=== PATIENT | male | born 1990 | race Caucasian/White ===

== ENCOUNTER 2017-05-06 04:53 | Inpatient (IN) | payer BC ==
[2017-05-06] MEDS ORDERED: Sodium Chloride 0.9% 1,000 ML IV STA (05:01)
[2017-05-06] MEDS ORDERED: Morphine 4 mg/ml ISec IVP STA ×2 (05:01→05:24)
[2017-05-06] MEDS ORDERED: Morphine 2 mg/ml ISec ONE (05:09)
--- NOTE | 2017-05-06 05:11 | ED PDOC ---
Arrival/HPI - General Chief Complaint: Abdominal Pain Time Seen by Provider: 05/06/17 05:00 Historian: Patient - History of Present Illness Narrative History of Present Illness (Text): 05/06/17 05:00 Tala Reilly is a 27 year old male, whose past medical history includes diabetes , who presents to the emergency department complaining of waking up a few hours ago with diffuse sharp, burning abdominal pain that radiates down into his suprapubic region. Reports some back pain. Patient states that he experiences multiple episodes of associated vomiting and notes that he has never experienced this kind of pain before. Patient says that he took Pepcid for pain which may have only worsened it. Patient denies any fevers, urinary symptoms, or any other complaints at this time. Patient endorses that he is a social drinker. 05/06/17 05:53 Time/Duration: 1-3 hours Symptom Onset: Gradual Symptom Course: Unchanged Quality: Burning, Other (Sharp) Severity Level: Moderate Activities at Onset: Rest Context: Home Past Medical History - Provider Review Nursing Documentation Reviewed: Yes - Cardiac Hx Cardiac Disorders: No - Pulmonary Hx Respiratory Disorders: No - Neurological Hx Neurological Disorder: No - HEENT Hx HEENT Disorder: No - Renal Hx Renal Disorder: No - Endocrine/Metabolic Hx Endocrine Disorders: Yes Hx Diabetes Mellitus Type 1: Yes - Hematological/Oncological Hx Blood Disorders: No - Integumentary Hx Dermatological Disorder: No - Musculoskeletal/Rheumatological Hx Musculoskeletal Disorders: No - Gastrointestinal Hx Gastrointestinal Disorders: No - Genitourinary/Gynecological Hx Genitourinary Disorders: No - Psychiatric Hx Anxiety: No Hx Depression: No Hx Emotional Abuse: No Hx Physical Abuse: No Hx Substance Use: No - Past Surgical History Past Surgical History: No Previous - Suicidal Assessment Feels Threatened In Home Enviroment: No Family/Social History - Physician Review Nursing Documentation Reviewed: Yes Family/Social History: No Known Family HX Smoking Status: Never Smoked Hx Alcohol Use: Yes Frequency of alcohol use: Socially Hx Substance Use: No Allergies/Home Meds Allergies/Adverse Reactions: Allergies No Known Allergies Allergy (Verified 05/06/17 05:00) Home Medications: Home Meds Medication Instructions Recorded Confirmed Insulin Aspart [Novolog] 55 unit SQ DAILY 02/04/16 05/06/17 Insulin Glargine, Recombina 20 unit SC AC 02/04/16 05/06/17 [Lantus] Ranitidine HCl [Acid Casting Assistant] 50 mg PO DAILY 05/06/17 05/06/17 Review of Systems - Physician Review All systems were reviewed & negative as marked: Yes - Review of Systems Constitutional: absent: Fevers, Night Sweats Eyes: absent: Vision Changes ENT: absent: Hearing Changes Respiratory: absent: SOB, Cough Cardiovascular: absent: Chest Pain Gastrointestinal: Abdominal Pain, Constipation, Vomiting. absent: Diarrhea Genitourinary Male: absent: Dysuria, Frequency, Urinary Output Changes Musculoskeletal: Back Pain. absent: Arthralgias Skin: absent: Rash, Pruritis Neurological: absent: Headache, Dizziness Endocrine: absent: Diaphoresis Hemo/Lymphatic: absent: Adenopathy Psychiatric: absent: Depression Physical Exam Vital Signs Reviewed: Yes Vital Signs Temp Pulse Resp BP Pulse Ox 05/06/17 05:00 97.8 F 105 H 20 151/96 H 99 Temperature: Afebrile Blood Pressure: Hypertensive Pulse: Tachycardic Respiratory Rate: Normal Appearance: Positive for: Uncomfortable Pain Distress: Severe Mental Status: Positive for: Alert and Oriented X 3 - Systems Exam Head: Present: Atraumatic, Normocephalic Pupils: Present: PERRL Extroacular Muscles: Present: EOMI Conjunctiva: Present: Normal Mouth: Present: Moist Mucous Membranes Neck: Present: Normal Range of Motion Respiratory/Chest: Present: Clear to Auscultation, Good Air Exchange. No: Respiratory Distress, Accessory Muscle Use Cardiovascular: Present: Regular Rate and Rhythm, Normal S1, S2. No: Murmurs Abdomen: Present: Tenderness (Diffuse abdominal tenderness), Other (urostomy back to R abdominal, draining clear urine.) Back: Present: Normal Inspection Upper Extremity: Present: Normal Inspection. No: Cyanosis, Edema Lower Extremity: Present: Normal Inspection. No: Edema Neurological: Present: GCS=15, CN II-XII Intact, Speech Normal Skin: Present: Warm, Dry, Normal Color. No: Rashes Psychiatric: Present: Alert, Oriented x 3, Normal Insight, Normal Concentration Medical Decision Making ED Course and Treatment: 05/06/17 05:00 Impression: 27 year old male complaining of waking up a few hours ago with diffuse sharp, burning abdominal pain. Differential Diagnosis included but are not limited to: Plan: -- Chest X-ray -- Urinalysis -- Morphine and IV Fluids -- Labs -- Reassess and disposition Prior Visits: Notes and results from previous visits were reviewed. Patient last seen in the ED on 02/04/16 for intermittent sore throat for a few months. Patient was discharged home. Progress Notes: 05/06/17 06:01 Labs grossly normal. EKG shows NSR at 96bpm. Cxray negative for free air. UA positive for hematuria. Will get CT abd/pelvis without contrast to evaluate for kidney stones. 05/06/17 07:00 Will sign out to Dr. Alegre to follow-up CT and reevaluate. 05/06/17 07:01 - Lab Interpretations Lab Results: 05/06/17 05:05 05/06/17 05:05 Lab Results 05/06/17 06:35: Urine Color Yellow, Urine Appearance Clear, Urine pH 6.0, Ur Specific [place] >= 1.030, Urine Protein >=300 H, Urine Glucose (UA) >=1000, Urine Ketones Trace H, Urine Blood Small H, Urine Nitrate Negative, Urine Bilirubin Negative, Urine Urobilinogen 0.2, Ur Leukocyte Esterase Negative, Urine RBC Pending, Urine WBC Pending 05/06/17 05:05: POC Glucose (mg/dL) 189 H 05/06/17 05:05: Sodium 139, Potassium 3.5 L, Chloride 100, Carbon Dioxide 25, Anion Gap 18, BUN 20, Creatinine 0.9, Est GFR ( Amer) > 60, Est GFR (Non- Af Amer) > 60, Random Glucose 230 H, Calcium 9.7, Phosphorus 3.9, Magnesium 1.7 , Total Bilirubin 0.5, AST 51, ALT 38, Alkaline Phosphatase 51, Total Protein 7.6, Albumin 4.6, Globulin 2.9, Albumin/Globulin Ratio 1.6, Lipase 53 05/06/17 05:05: WBC 11.1 H, RBC 5.03, Hgb 14.7, Hct 42.3, MCV 84.1, MCH 29.2, MCHC 34.8, RDW 12.3, Plt Count 279, MPV 9.5, Gran % 53.6, Lymph % (Auto) 37.2 H , [place] % (Auto) 7.7 H, Eos % (Auto) 1.3 L, Baso % (Auto) 0.2, Gran # 5.96, Lymph # 4.1 H, [place] # 0.9 H, Eos # 0.1, Baso # 0.02 - RAD Interpretation Radiology Orders: 05/06/17 05:04 CHEST PORTABLE [RAD] Stat 05/06/17 06:46 ABD & PELVIS W/O PO OR IV CONT [CT] Stat - Medication Orders Current Medication Orders: Discontinued Medications Sodium Chloride (Sodium Chloride 0.9%) 1,000 mls @ 999 mls/hr IV .Q1H1M STA Stop: 05/06/17 06:01 Last Admin: 05/06/17 05:13 Dose: 999 mls/hr eMAR Start Stop Document 05/06/17 05:13 JOL (Rec: 05/06/17 05:13 JOL [id number]) Intravenous Solution Start Date 05/06/17 Start Time 05:13 End Date 05/06/17 End time 06:14 Total Infusion Time 61 Ketorolac Tromethamine (Toradol) 30 mg IVP STAT STA Stop: 05/06/17 05:25 Last Admin: 05/06/17 05:25 Dose: 30 mg MAR Pain Assessment Document 05/06/17 05:25 JOL (Rec: 05/06/17 06:48 JOL [id number]) Pain Reassessment Is this a pain reassessment? No Sleep Is patient sleeping during reassessment? No Presence of Pain Presence of Pain Yes Pain Scale Used Pain Scale Used Numeric Location Pain Location Body Site Abdomen Back Description Description Constant Intensity of Pain at present 9 IVP Administration Document 05/06/17 05:25 JOL (Rec: 05/06/17 06:48 JOL [id number]) Charges for Administration # of IVP Administrations 1 Morphine Sulfate (Morphine) 4 mg IVP STAT STA Stop: 05/06/17 05:02 Last Admin: 05/06/17 05:13 Dose: Morphine Sulfate (Morphine) 4 mg IVP STAT STA Stop: 05/06/17 05:25 Last Admin: 05/06/17 05:25 Dose: 4 mg MAR Pain Assessment Document 05/06/17 05:25 JOL (Rec: 05/06/17 06:48 JOL [id number]) Pain Reassessment Is this a pain reassessment? Yes Sleep Is patient sleeping during reassessment? No Presence of Pain Presence of Pain Yes Pain Scale Used Pain Scale Used Numeric Location Pain Location Body Site Abdomen Back Description Description Constant Intensity of Pain at present 9 Pain Behavior Moaning Crying Restlessness Facial Grimacing Screaming Aggravating Factors None IVP Administration Document 05/06/17 05:25 JOL (Rec: 05/06/17 06:48 JOL [id number]) Charges for Administration # of IVP Administrations 1 Morphine Sulfate (Morphine) 4 mg IVP STAT STA Stop: 05/06/17 05:50 Last Admin: 05/06/17 05:50 Dose: 4 mg MAR Pain Assessment Document 05/06/17 05:50 JOL (Rec: 05/06/17 06:49 JOL [id number]) Pain Reassessment Is this a pain reassessment? Yes Sleep Is patient sleeping during reassessment? No Presence of Pain Presence of Pain Yes Pain Scale Used Pain Scale Used Numeric Location Pain Location Body Site Abdomen Back Description Intensity of Pain at present 9 Pain Behavior Restlessness Facial Grimacing Screaming IVP Administration Document 05/06/17 05:50 JOL (Rec: 05/06/17 06:49 JOL [id number]) Charges for Administration # of IVP Administrations 1 - Scribe Statement The provider has reviewed the documentation as recorded by the Cherelle Evans Provider Scribe Attestation: All medical record entries made by the Scribe were at my direction and personally dictated by me. I have reviewed the chart and agree that the record accurately reflects my personal performance of the history, physical exam, medical decision making, and the department course for this patient. I have also personally directed, reviewed, and agree with the discharge instructions and disposition. Disposition/Present on Arrival - Present on Arrival Any Indicators Present on Arrival: No History of DVT/PE: No History of Uncontrolled Diabetes: No Urinary Catheter: No History of Decub. Ulcer: No History Surgical Site Infection Following: None - Disposition Have Diagnosis and Disposition been Completed?: Yes Diagnosis: Abdominal pain Disposition Time: 06:58 Patient Problems: Current Active Problems Problem Status Onset Abdominal pain Acute Condition: FAIR Referrals: Alta Valencia DO [Primary Care Provider] - Follow up with primary Forms: Whatever (Portuguese)
[2017-05-06 05:32] LABS: BASO # 0.02 K/mm3 (0.0-2.0); BASO % 0.2 % (0.0-3.0); EOS # 0.1 (0.0-0.7); EOS % 1.3 % (1.5-5.0); GRAN # 5.96 (1.4-6.5); GRAN % 53.6 % (50.0-68.0); HEMATOCRIT 42.3 % (42.0-52.0); LYMPH # 4.1 (1.2-3.4); LYMPH % 37.2 % (22.0-35.0); MEAN CELL VOLUME 84.1 fl (80.0-105.0); MEAN CORPUSCULAR HEMOGLOBIN 29.2 pg (25.0-35.0); MEAN CORPUSCULAR HGB CONC 34.8 g/dl (31.0-37.0); MEAN PLATELET VOLUME 9.5 fl (7.0-11.0); MONO # 0.9 (0.1-0.6); MONO % 7.7 % (1.0-6.0); RED CELL DISTRIBUTION WIDTH 12.3 % (11.5-14.5); WHITE BLOOD COUNT 11.1 10^3/ul (4.5-11.0)
[2017-05-06 05:38] LABS: ALB/GLOB RATIO 1.6 (1.1-1.8); ALKALINE PHOSPHATASE 51 U/L (38-126); ALT/SGPT 38 U/L (7-56); AST/SGOT 51 U/L (17-59); BILIRUBIN,TOTAL 0.5 mg/dL (0.2-1.3); BLOOD UREA NITROGEN 20 mg/dL (7-21); CALCIUM 9.7 mg/dL (8.4-10.5); CARBON DIOXIDE 25 mmol/L (21-33); CHLORIDE 100 mmol/L (95-110); GFR AFRICAN-AMERICAN > 60; GLUCOSE,RANDOM 230 mg/dL (70-110); LIPASE 53 U/L (23-300); MAGNESIUM 1.7 mg/dL (1.7-2.2); PHOSPHOROUS 3.9 mg/dL (2.5-4.5); POTASSIUM 3.5 mmol/L (3.6-5.0); SODIUM 139 mmol/L (132-148); TOTAL PROTEIN 7.6 g/dL (5.8-8.3)
[2017-05-06] MEDS ORDERED: Morphine 2 mg/ml ISec IVP STA (05:49)
[2017-05-06 06:39] LABS: URINE APPEARANCE CLEAR (CLEAR); URINE BILIRUBIN NEGATIVE (NEGATIVE); URINE BLOOD SMALL (NEGATIVE); URINE COLOR YELLOW (YELLOW); URINE GLUCOSE (UA) >=1000 mg/dL (NEGATIVE); URINE KETONE TRACE mg/dL (NEGATIVE); URINE LEUKOCYTE ESTERASE NEGATIVE Leu/uL (NEGATIVE); URINE PROTEIN >=300 mg/dL (<30 mg/dL); URINE UROBILINOGEN 0.2 E.U./dL (<1 E.U./dL)
[2017-05-06 07:04] LABS: URINE BACTERIA FEW (NEG); URINE EPITHELIAL CELLS 0 - 2 /hpf (0-5); URINE RBC 0 - 2 /hpf (0-2); URINE WBC 0 - 2 /hpf (0-6)
--- NOTE | 2017-05-06 07:12 | ED PDOC ---
Physical Exam Vital Signs Reviewed: Yes Vital Signs Temp Pulse Resp BP Pulse Ox 05/06/17 05:00 97.8 F 105 H 20 151/96 H 99 Temperature: Afebrile Blood Pressure: Hypertensive Pulse: Tachycardic Respiratory Rate: Normal Appearance: Positive for: Well-Appearing, Non-Toxic, Comfortable Pain Distress: None Mental Status: Positive for: Alert and Oriented X 3 Medical Decision Making ED Course and Treatment: 05/06/17 07:10: Case endorsed to me by Dr. Miller. Reevaluate and Disposition. 05/06/17 08:34: Discussed case with Dr. Sandoval, penetration tester for Dr. Valencia. Requests Dr. Sousa on consult Dr. Sousa was paged. 05/06/17 08:38: Discussed case with Dr. Sousa. Will see patient and surgery residents will be called. - Lab Interpretations Lab Results: 05/06/17 05:05 05/06/17 05:05 Lab Results 05/06/17 06:35: Urine Color Yellow, Urine Appearance Clear, Urine pH 6.0, Ur Specific [place] >= 1.030, Urine Protein >=300 H, Urine Glucose (UA) >=1000, Urine Ketones Trace H, Urine Blood Small H, Urine Nitrate Negative, Urine Bilirubin Negative, Urine Urobilinogen 0.2, Ur Leukocyte Esterase Negative, Urine RBC 0 - 2, Urine WBC 0 - 2, Ur Epithelial Cells 0 - 2, Urine Bacteria Few 05/06/17 05:05: POC Glucose (mg/dL) 189 H 05/06/17 05:05: Sodium 139, Potassium 3.5 L, Chloride 100, Carbon Dioxide 25, Anion Gap 18, BUN 20, Creatinine 0.9, Est GFR ( Amer) > 60, Est GFR (Non- Af Amer) > 60, Random Glucose 230 H, Calcium 9.7, Phosphorus 3.9, Magnesium 1.7 , Total Bilirubin 0.5, AST 51, ALT 38, Alkaline Phosphatase 51, Total Protein 7.6, Albumin 4.6, Globulin 2.9, Albumin/Globulin Ratio 1.6, Lipase 53 05/06/17 05:05: WBC 11.1 H, RBC 5.03, Hgb 14.7, Hct 42.3, MCV 84.1, MCH 29.2, MCHC 34.8, RDW 12.3, Plt Count 279, MPV 9.5, Gran % 53.6, Lymph % (Auto) 37.2 H , [place] % (Auto) 7.7 H, Eos % (Auto) 1.3 L, Baso % (Auto) 0.2, Gran # 5.96, Lymph # 4.1 H, [place] # 0.9 H, Eos # 0.1, Baso # 0.02 - RAD Interpretation Radiology Orders: 05/06/17 05:04 CHEST PORTABLE [RAD] Stat 05/06/17 06:46 ABD & PELVIS W/O PO OR IV CONT [CT] Stat - Medication Orders Current Medication Orders: Discontinued Medications Sodium Chloride (Sodium Chloride 0.9%) 1,000 mls @ 999 mls/hr IV .Q1H1M STA Stop: 05/06/17 06:01 Last Admin: 05/06/17 05:13 Dose: 999 mls/hr eMAR Start Stop Document 05/06/17 05:13 JOL (Rec: 05/06/17 05:13 JOL [id number]) Intravenous Solution Start Date 05/06/17 Start Time 05:13 End Date 05/06/17 End time 06:14 Total Infusion Time 61 Ketorolac Tromethamine (Toradol) 30 mg IVP STAT STA Stop: 05/06/17 05:25 Last Admin: 05/06/17 05:25 Dose: 30 mg MAR Pain Assessment Document 05/06/17 05:25 JOL (Rec: 05/06/17 06:48 JOL [id number]) Pain Reassessment Is this a pain reassessment? No Sleep Is patient sleeping during reassessment? No Presence of Pain Presence of Pain Yes Pain Scale Used Pain Scale Used Numeric Location Pain Location Body Site Abdomen Back Description Description Constant Intensity of Pain at present 9 IVP Administration Document 05/06/17 05:25 JOL (Rec: 05/06/17 06:48 JOL [id number]) Charges for Administration # of IVP Administrations 1 Morphine Sulfate (Morphine) 4 mg IVP STAT STA Stop: 05/06/17 05:02 Last Admin: 05/06/17 05:13 Dose: Morphine Sulfate (Morphine) 4 mg IVP STAT STA Stop: 05/06/17 05:25 Last Admin: 05/06/17 05:25 Dose: 4 mg MAR Pain Assessment Document 05/06/17 05:25 JOL (Rec: 05/06/17 06:48 JOL [id number]) Pain Reassessment Is this a pain reassessment? Yes Sleep Is patient sleeping during reassessment? No Presence of Pain Presence of Pain Yes Pain Scale Used Pain Scale Used Numeric Location Pain Location Body Site Abdomen Back Description Description Constant Intensity of Pain at present 9 Pain Behavior Moaning Crying Restlessness Facial Grimacing Screaming Aggravating Factors None IVP Administration Document 05/06/17 05:25 JOL (Rec: 05/06/17 06:48 JOL [id number]) Charges for Administration # of IVP Administrations 1 Morphine Sulfate (Morphine) 4 mg IVP STAT STA Stop: 05/06/17 05:50 Last Admin: 05/06/17 05:50 Dose: 4 mg MAR Pain Assessment Document 05/06/17 05:50 JOL (Rec: 05/06/17 06:49 JOL [id number]) Pain Reassessment Is this a pain reassessment? Yes Sleep Is patient sleeping during reassessment? No Presence of Pain Presence of Pain Yes Pain Scale Used Pain Scale Used Numeric Location Pain Location Body Site Abdomen Back Description Intensity of Pain at present 9 Pain Behavior Restlessness Facial Grimacing Screaming IVP Administration Document 05/06/17 05:50 JOL (Rec: 05/06/17 06:49 JOL [id number]) Charges for Administration # of IVP Administrations 1 - Scribe Statement The provider has reviewed the documentation as recorded by the Cherelle Raimrez Provider Scribe Attestation: All medical record entries made by the Scribe were at my direction and personally dictated by me. I have reviewed the chart and agree that the record accurately reflects my personal performance of the history, physical exam, medical decision making, and the department course for this patient. I have also personally directed, reviewed, and agree with the discharge instructions and disposition. Disposition/Present on Arrival - Present on Arrival Any Indicators Present on Arrival: No History of DVT/PE: No History of Uncontrolled Diabetes: No Urinary Catheter: No History of Decub. Ulcer: No History Surgical Site Infection Following: None - Disposition Have Diagnosis and Disposition been Completed?: Yes Diagnosis: Abdominal pain, SBO (small bowel obstruction) Disposition: HOSPITALIZED Disposition Time: 11:00 Patient Problems: Current Active Problems Problem Status Onset Abdominal pain Acute Condition: STABLE
--- NOTE | 2017-05-06 08:30 | CT ---
PROCEDURE: CT Abdomen and Pelvis without intravenous contrast HISTORY: hematuria, abdominal pain COMPARISON: None. TECHNIQUE: Without contrast.. Contrast Dose: 0 Radiation dose: Total exam DLP = 1791.04 mGy-cm. This CT exam was performed using one or more of the following dose reduction techniques: Automated exposure control, adjustment of the mA and/or kV according to patient size, and/or use of iterative reconstruction technique. FINDINGS: LOWER THORAX: Unremarkable. LIVER: Mild hepatomegaly. Smooth contour. Diffusely diminished attenuation with some heterogeneity consistent with heterogeneous fatty infiltration. No mass. No biliary dilatation. GALLBLADDER AND BILE DUCTS: Unremarkable. PANCREAS: Unremarkable. No gross lesion or ductal dilatation. SPLEEN: Unremarkable. ADRENALS: Unremarkable. No mass. KIDNEYS AND URETERS: Unremarkable. No hydronephrosis. No solid mass. VASCULATURE: Unremarkable. No aortic aneurysm. BOWEL: There is a loop of small bowel in the left upper quadrant of the abdomen showing dilatation up to 5 cm diameter with mural thickening and some mesenteric edema. Uncertain significance. Cannot rule out early obstruction. . Follow-up advised. No other abnormal bowel loops are identified. APPENDIX: Unremarkable. Normal appendix. PERITONEUM: Unremarkable. No free fluid. No free air. LYMPH NODES: Unremarkable. No enlarged lymph nodes. BLADDER: Nondistended REPRODUCTIVE: Normal prostate BONES: No acute fracture. OTHER FINDINGS: None. IMPRESSION: Loop of proximal small bowel with dilatation in mural thickening and mesenteric edema. Rule out mechanical obstruction. Followup advised. No evidence of urinary calculus or urinary tract obstruction. Mild hepatomegaly with fatty infiltration.
--- NOTE | 2017-05-06 08:44 | RAD ---
HISTORY: upright chest, abdominal pain COMPARISON: No prior. FINDINGS: LUNGS: No active pulmonary disease. PLEURA: No significant pleural effusion identified, no pneumothorax apparent. CARDIOVASCULAR: Normal. OSSEOUS STRUCTURES: No significant abnormalities. VISUALIZED UPPER ABDOMEN: Normal. OTHER FINDINGS: None. IMPRESSION: No active disease.
[2017-05-06] MEDS ORDERED: HYDROmorphone 1 mg/ml ISec IVP PRN (08:50)
[2017-05-06] MEDS ORDERED: Sodium Chloride 0.9% 1,000 ML IV SCH (09:00)
[2017-05-06] MEDS ORDERED: Morphine 4 mg/ml ISec IVP PRN (09:11)
--- NOTE | 2017-05-06 09:24 | CP.PCM.CON ---
<James Velasquez - Last Filed: 05/06/17 16:01> History of Present Illness - History of Present Illness History of Present Illness: General Surgery Consult Note for Dr. Villalta Reason for Consult: Abdominal pain and vomiting 27 year old Male that presented to the ED this morning with diffuse abdominal pain that started at 2:00am. He reports eating a large meal and a cocktail for dinner. He stated he has never had pain like this before and it was only getting worse after he took ranitidine and peptobismol. He reports associated diaphoresis, nausea and non-bilious, non-bloody vomiting x 3. His last bowel movement was in the morning which he describes as solid and brown in color. Denies any flatus. 2 weeks prior he stated he had multiple episodes of diarrhea and was subsequently diagnosed with gastroenteritis and prescribed ranitidine for abdominal pain. He also reports 3 weeks ago he started taking over the counter weight loss pills from [facility]. Denies any headache, fever, chills, night sweats, nausea, vomiting, diarrhea, chest pain or shortness of breath. PMH: Type 1 Diabetes Mellitus, Asthma Meds: Novolog, Lantus, Randitidine Allergies: NKDA PSH: Right inguinal hernia repair as a child in [place] FH: No history of colon cancer or GI tract cancers. Significant for cardiac disease and Diabetes Mellitus Social: Works at [employer]. Denies any tobacco or illicit drug use. Drinks ETOH socially. Review of Systems - Constitutional Constitutional: absent: Chills, Weight Loss - EENT Eyes: absent: Change in Vision, Loss of Peripheral Vision Ears: absent: Dizziness Nose/Mouth/Throat: absent: Nasal Congestion, Halitosis, Mouth Pain - Cardiovascular Cardiovascular: absent: Chest Pain, Chest Pain at Rest, Chest Pain with Activity , Dyspnea, Dyspnea on Exertion, Irregular Heart Rhythm - Respiratory Respiratory: absent: Cough, Dyspnea, Hemoptysis, Wheezing - Gastrointestinal Gastrointestinal: Abdominal Pain, Nausea, Vomiting. absent: Constipation, Diarrhea - Genitourinary Genitourinary: absent: Change in Urinary Stream, Difficulty Urinating, Dysuria - Musculoskeletal Musculoskeletal: absent: Arthralgias, Atrophy, Back Pain, Loss of Height, Numbness, Tingling - Integumentary Integumentary: absent: Changing Lesions, New Lesions - Neurological Neurological: absent: Dizziness, Numbness, Syncope, Tingling, Vertigo, Weakness - Psychiatric Psychiatric: absent: Anxiety, Depression, Suicidal Ideation - Endocrine Endocrine: absent: Fatigue, Palpitations, Polydipsia, Polyphagia, Polyuria - Hematologic/Lymphatic Hematologic: absent: Easy Bleeding, Easy Bruising, Lymphadenopathy Past Patient History - Past Social History Smoking Status: Never Smoked - CARDIAC Hx Cardiac Disorders: No - PULMONARY Hx Respiratory Disorders: No - NEUROLOGICAL Hx Neurological Disorder: No - HEENT Hx HEENT Problems: No - RENAL Hx Chronic Kidney Disease: No - ENDOCRINE/METABOLIC Hx Endocrine Disorders: Yes Hx Diabetes Mellitus Type 1: Yes - HEMATOLOGICAL/ONCOLOGICAL Hx Blood Disorders: No - INTEGUMENTARY Hx Dermatological Problems: No - MUSCULOSKELETAL/RHEUMATOLOGICAL Hx Musculoskeletal Disorders: No - GASTROINTESTINAL Hx Gastrointestinal Disorders: No - GENITOURINARY/GYNECOLOGICAL Hx Genitourinary Disorders: No - PSYCHIATRIC Hx Anxiety: No Hx Depression: No Hx Emotional Abuse: No Hx Physical Abuse: No Hx Substance Use: No - SURGICAL HISTORY Hx Surgeries: No Meds Allergies/Adverse Reactions: Allergies Allergy/AdvReac Type Severity Reaction Status Date / Time No Known Allergies Allergy Verified 05/06/17 05:00 - Medications Medications: Current Medications Hydromorphone HCl (Dilaudid) 1 mg IVP Q4H PRN PRN Reason: Pain, moderate (4-7) Potassium Chloride (Potassium Chloride 10 Meq/100 Ml) 10 meq in 100 mls @ 100 mls/hr IVPB ONCE ONE Stop: 05/06/17 09:52 Sodium Chloride (Sodium Chloride 0.9%) 1,000 mls @ 75 mls/hr IV .[id number] [facility] Insulin Human Regular (Humulin R Med) 0 units SC ACHS [facility]H PRN Reason: Protocol Morphine Sulfate (Morphine) 4 mg IVP Q4 PRN PRN Reason: Pain, moderate (4-7) Ondansetron HCl (Zofran Inj) 4 mg IVP Q4 PRN PRN Reason: Nausea/Vomiting Physical Exam - Constitutional Appears: In Acute Distress (mild distress from abdominal pain) - Head Exam Head Exam: ATRAUMATIC, NORMOCEPHALIC - Eye Exam Eye Exam: EOMI, Normal appearance. absent: Conjunctival injection Pupil Exam: PERRL - ENT Exam ENT Exam: Mucous Membranes Moist - Neck Exam Neck exam: Positive for: Full Rom - Respiratory Exam Respiratory Exam: NORMAL BREATHING PATTERN. absent: Accessory Muscle Use, Respiratory Distress - Cardiovascular Exam Cardiovascular Exam: Tachycardia, RRR - GI/Abdominal Exam GI & Abdominal Exam: Guarding (voluntary), Hypoactive Bowel Sounds, Soft, Tenderness (diffuse). absent: Firm, Organomegaly, Rebound, Rigid Additional comments: 4-5cm scar on Right suprapubic region - Extremities Exam Extremities exam: Positive for: normal capillary refill, pedal pulses present. Negative for: calf tenderness, pedal edema, tenderness - Back Exam Back exam: absent: CVA tenderness (L), CVA tenderness (R) - Neurological Exam Neurological exam: Alert, CN II-XII Intact, Oriented x3 - Psychiatric Exam Psychiatric exam: Normal Affect, Normal Mood - Skin Skin Exam: Dry, Intact, Normal Color, Warm Results - Vital Signs Recent Vital Signs: Last Vital Signs Temp 97.8 F 05/06/17 05:00 Pulse 189 H 05/06/17 09:19 Resp 94 H 05/06/17 09:19 BP 150/87 05/06/17 09:19 Pulse Ox 99 05/06/17 09:19 - Labs Result Diagrams: 05/06/17 05:05 05/06/17 05:05 Assessment & Plan - Assessment and Plan (Free Text) Assessment: 27M with small bowel obstruction Plan: - NPO - IVF - NG Tube placement -Analgesics/Antiemetics -OR today for intervention -Discussed with Dr. Ambar Velasquez PGY-1 <Peyman Villalta - Last Filed: 05/11/17 02:13> Results - Vital Signs Recent Vital Signs: Last Vital Signs Temp 97.8 F 05/08/17 16:48 Pulse 81 05/08/17 18:51 Resp 20 05/08/17 16:48 BP 129/89 05/08/17 18:51 Pulse Ox 98 05/08/17 16:48 - Labs Result Diagrams: 05/08/17 06:00 05/08/17 06:00 Assessment & Plan - Assessment and Plan (Free Text) Plan: Patient was seen and examined by me. I agree with assessment and plan as per resident's note. - Date & Time Date: 05/06/17 Time: 11:15
[2017-05-06] MEDS: Sodium Chloride 0.9% 1,000 ML IV SCH (09:39)
--- NOTE | 2017-05-06 10:58 | CP.PCM.HP ---
<Chantel Amin - Last Filed: 05/06/17 11:48> History of Present Illness - History of Present Illness History of Present Illness: PGY-2 h&p for Dr. Patterson 27 year old male, whose past medical history includes diabetes type 1, who presents to the emergency department complaining of waking up a few hours ago with diffuse sharp, burning abdominal pain that is diffusely throughout his abd. He states that pain radiates to is sides and back. Patient states that last night he had a large meal with cocktails. He denies any pain, nausea last night. He states that this morning he woke up around 2 am with the abd pain. He had 1 BM with relieved the pain somewhat, but pain returned. He also took ranitidine but it did not help. While walking to the hospital he experienced multiple episodes of vomiting, non bloody. He denies any previous similar experiences of this pain before. Patient states he checked his sugars this am and they were elevated so he took extra insulin. Patient states that he had food poisoning 2 weeks ago which resolved. He also reports taking an weight loss supplement, he does not recall the name. Patient denies any fevers, urinary symptoms, or any other complaints at this time. PMH: diabetes type 1 PSH: right inguinal hernia repair as child Social history: occasional alcohol use, denies smoking, illicit dug use family hx: Diabetes, heart disease allerg: nkda Home meds: randitidine, novalong, lantus Present on Admission - Present on Admission Any Indicators Present on Admission: No Review of Systems - Constitutional Constitutional: absent: Fatigue, Fever, Headache, Weakness - EENT Eyes: absent: Change in Vision Nose/Mouth/Throat: absent: Nasal Congestion, Sore Throat - Cardiovascular Cardiovascular: Diaphoresis. absent: Chest Pain, Dyspnea, Palpitations, Pedal Edema - Respiratory Respiratory: absent: Cough, Dyspnea - Gastrointestinal Gastrointestinal: Abdominal Pain, Nausea, Vomiting. absent: Constipation, Diarrhea - Genitourinary Genitourinary: Flank Pain. absent: Dysuria, Hematuria - Musculoskeletal Musculoskeletal: Back Pain. absent: Arthralgias, Myalgias, Neck Pain - Integumentary Integumentary: absent: Pruritus, Rash, Skin Ulcer, Sores, Striae - Neurological Neurological: absent: Dizziness, Numbness, Focal Weakness, Headaches, Weakness - Hematologic/Lymphatic Hematologic: absent: Easy Bleeding, Easy Bruising Past Patient History - Past Social History Smoking Status: Never Smoked - CARDIAC Hx Cardiac Disorders: No - PULMONARY Hx Respiratory Disorders: No - NEUROLOGICAL Hx Neurological Disorder: No - HEENT Hx HEENT Problems: No - RENAL Hx Chronic Kidney Disease: No - ENDOCRINE/METABOLIC Hx Endocrine Disorders: Yes Hx Diabetes Mellitus Type 1: Yes - HEMATOLOGICAL/ONCOLOGICAL Hx Blood Disorders: No - INTEGUMENTARY Hx Dermatological Problems: No - MUSCULOSKELETAL/RHEUMATOLOGICAL Hx Musculoskeletal Disorders: No - GASTROINTESTINAL Hx Gastrointestinal Disorders: No - GENITOURINARY/GYNECOLOGICAL Hx Genitourinary Disorders: No - PSYCHIATRIC Hx Anxiety: No Hx Depression: No Hx Emotional Abuse: No Hx Physical Abuse: No Hx Substance Use: No - SURGICAL HISTORY Hx Surgeries: No Meds Allergies/Adverse Reactions: Allergies Allergy/AdvReac Type Severity Reaction Status Date / Time No Known Allergies Allergy Verified 05/06/17 05:00 Physical Exam - Constitutional Appears: No Acute Distress - Head Exam Head Exam: ATRAUMATIC, NORMAL INSPECTION, NORMOCEPHALIC - Eye Exam Eye Exam: EOMI, Normal appearance - ENT Exam ENT Exam: Mucous Membranes Moist - Respiratory Exam Respiratory Exam: Clear to Auscultation Bilateral, NORMAL BREATHING PATTERN. absent: Decreased Breath Sounds, Rales, Rhonchi, Wheezes, Respiratory Distress, Stridor - Cardiovascular Exam Cardiovascular Exam: REGULAR RHYTHM, +S1, +S2. absent: Tachycardia, Diastolic murmur, Systolic Murmur - GI/Abdominal Exam GI & Abdominal Exam: Guarding, Hypoactive Bowel Sounds, Soft, Tenderness. absent: Firm - Extremities Exam Extremities exam: Positive for: normal inspection. Negative for: pedal edema, tenderness - Neurological Exam Neurological exam: Alert, Oriented x3 - Skin Skin Exam: Dry, Intact, Normal Color, Warm Results - Vital Signs Recent Vital Signs: Last Vital Signs Temp 97.8 F 05/06/17 05:00 Pulse 89 05/06/17 09:19 Resp 94 H 05/06/17 09:19 BP 150/87 05/06/17 09:19 Pulse Ox 99 05/06/17 09:19 - Labs Result Diagrams: 05/06/17 05:05 05/06/17 05:05 Assessment & Plan - Assessment and Plan (Free Text) Assessment: 27 year old male, whose past medical history includes diabetes type 1, who presents with abd pain. CT abd reviewed, showed Loop of proximal small bowel with dilatation in mural thickening and mesenteric edema, no evidence of urinary calculus or urinary tract obstruction. Plan: 1. abd pain - possibly due to bowel obstruction - CT abd reviewed, showed Loop of proximal small bowel with dilatation in mural thickening and mesenteric edema, no evidence of urinary calculus or urinary tract obstruction. (refer to full report) - NPO - IVF NS @75 - zofran for nausea - NG tube - surgery consulted - GI consulted 2. diabetes type 1 - elevated - ISS started - fingersticks ACHS <James Patterson S - Last Filed: 05/06/17 20:00> Results - Vital Signs Recent Vital Signs: Last Vital Signs Temp 98.2 F 05/06/17 16:45 Pulse 96 H 05/06/17 16:45 Resp 16 05/06/17 16:45 BP 148/80 05/06/17 16:45 Pulse Ox 100 05/06/17 16:45 - Labs Result Diagrams: 05/06/17 05:05 05/06/17 05:05 Assessment & Plan - Assessment and Plan (Free Text) Plan: Pt is seen and examined. Note of medical research scientist reviewed and I am in agree with it. Reviewed Labs and medications. Reviewed notes. Pt most likely has hernia and will need surgery. Surgery to evaluate the pt. IVF. Pain controlled with Morphine.
--- NOTE | 2017-05-06 11:01 | RAD ---
PROCEDURE: CHEST RADIOGRAPH, 1 VIEW HISTORY: NG tube insertion COMPARISON: None available. FINDINGS: LUNGS: Clear. PLEURA: No pneumothorax or pleural fluid seen. CARDIOVASCULAR: Normal. OSSEOUS STRUCTURES: No significant abnormalities. VISUALIZED UPPER ABDOMEN: NG tube in satisfactory position OTHER FINDINGS: None. IMPRESSION: NG tube in satisfactory position
[2017-05-06] MEDS ORDERED: Bupivacaine 0.5% Inj(30mL) ONE (12:23)
[2017-05-06] MEDS ORDERED: Propofol 10 mg/ml Inj (20 ML) ONE (12:29)
[2017-05-06] MEDS ORDERED: Midazolam 2 MG/2 ML VIAL ONE (12:31)
[2017-05-06] MEDS ORDERED: Lidocaine 1% Inj (20ml) ONE (12:33)
[2017-05-06] MEDS ORDERED: Succinylcholine 200 mg/10 ml Inj IV ONE (12:34)
[2017-05-06] MEDS ORDERED: Rocuronium 10 mg/ml (5 ml) ONE ×2 (12:34→13:36)
[2017-05-06] MEDS ORDERED: Sevoflurane - Inhalation Anesthetic Liq (250 ml) ONE (13:49)
[2017-05-06] MEDS ORDERED: Neostigmine Methylsulfate 3mg/3ml Syringe IV ONE (14:14)
[2017-05-06] MEDS ORDERED: Glycopyrrolate 0.2 mg/ml (2ml vial) ONE (14:16)
--- NOTE | 2017-05-06 15:06 | PCM.SURG1 ---
Surgeon's Initial Post Op Note - Surgeon's Notes Surgeon: Dr. Villalta Manager Mining: Dr. Roman PGY3; Dr. Velasquez PGY2 Type of Anesthesia: General Endo Anesthesia Administered By: Sergio Pre-Operative Diagnosis: Small bowel obstruction Operative Findings: Internal hernia containing dilated loop of small bowel. chylous ascites Post-Operative Diagnosis: Small bowel obstruction d/t Internal Hernia Operation Performed: Diagnostic Laparoscopy converted to laparotomy. Reduction of Internal Hernia. Repair of Mesenteric Defect. Lysis of adhesions. Jejunopexy Specimen/Specimens Removed: none Estimated Blood Loss: EBL {In ML}: 10 Blood Products Given: N/A Drains Used: No Drains Post-Op Condition: Good Date of Surgery/Procedure: 05/06/17 Time of Surgery/Procedure: 15:06
[2017-05-06] MEDS: HYDROmorphone 0.5 mg/0.5 ml ISec IVP PRN ×4 (15:35→22:41)
[2017-05-06] MEDS ORDERED: HYDROmorphone 0.5 mg/0.5 ml ISec ONE ×3 (15:39→16:07)
[2017-05-06] MEDS: Insulin Reg-MEDIUM-Coverage SC SCH ×3 (17:35→21:32)
[2017-05-07] MEDS: HYDROmorphone 0.5 mg/0.5 ml ISec IVP PRN ×2 (01:35→05:05)
[2017-05-07 02:38] VITALS: BMI 34.5
[2017-05-07] MEDS: Sodium Chloride 0.9% 1,000 ML IV SCH (05:06)
[2017-05-07 06:38] LABS: HEMATOCRIT 40.5 % (42.0-52.0); MEAN CELL VOLUME 86.4 fl (80.0-105.0); MEAN CORPUSCULAR HEMOGLOBIN 28.6 pg (25.0-35.0); MEAN CORPUSCULAR HGB CONC 33.1 g/dl (31.0-37.0); MEAN PLATELET VOLUME 9.4 fl (7.0-11.0); RED CELL DISTRIBUTION WIDTH 12.7 % (11.5-14.5)
[2017-05-07 06:55] LABS: ALB/GLOB RATIO 1.4 (1.1-1.8); ALKALINE PHOSPHATASE 45 U/L (38-126); ALT/SGPT 35 U/L (7-56); AST/SGOT 37 U/L (17-59); BLOOD UREA NITROGEN 14 mg/dL (7-21); CALCIUM 8.4 mg/dL (8.4-10.5); CARBON DIOXIDE 28 mmol/L (21-33); CHLORIDE 100 mmol/L (98-107); GFR AFRICAN-AMERICAN > 60; GLUCOSE,RANDOM 218 mg/dL (70-110); MAGNESIUM 1.7 mg/dL (1.7-2.2); SODIUM 136 mmol/L (132-148); TOTAL PROTEIN 6.5 g/dL (5.8-8.3)
[2017-05-07 07:43] VITALS: RESP 20
[2017-05-07] MEDS ORDERED: HYDROmorphone 0.5 mg/0.5 ml ISec IVP PRN (08:03)
[2017-05-07] MEDS: Insulin Reg-MEDIUM-Coverage SC SCH ×4 (08:06→22:46)
--- NOTE | 2017-05-07 08:08 | CP.PCM.PN ---
<AbelMandie - Last Filed: 05/07/17 12:48> Subjective - Date & Time of Evaluation Date of Evaluation: 05/07/17 Time of Evaluation: 08:04 - Subjective Subjective: General Surgery - Dr. Villalta Pt S&Mando [place]. Pt. complaining of post-surgical pain from the incision, states pain he had prior to surgery is now relieved. He is tolerating clear liquid diet, passing flatus, no BM. No N&V, Fevers/Chills, SOB/Chest pain. Objective - Vital Signs/Intake and Output Vital Signs (last 24 hours): Temp Pulse Resp BP Pulse Ox 99.5 F 80 20 140/90 97 05/07/17 07:00 05/07/17 07:00 05/07/17 07:00 05/07/17 07:00 05/07/17 07:00 Intake and Output: 05/07/17 05/07/17 06:59 18:59 Intake Total 1440 Output Total 300 Balance 1140 - Medications Medications: Current Medications Hydromorphone HCl (Dilaudid) 0.5 mg IVP Q3H PRN PRN Reason: Pain, moderate (4-7) Sodium Chloride (Sodium Chloride 0.9%) 1,000 mls @ 75 mls/hr IV .[id number] [facility] Last Admin: 05/07/17 05:06 Dose: 75 mls/hr Insulin Human Regular (Humulin R Med) 0 units SC ACHS [facility] PRN Reason: Protocol Last Admin: 05/06/17 21:32 Dose: Not Given Ketorolac Tromethamine (Toradol) 30 mg IVP Q6H [facility] Ondansetron HCl (Zofran Inj) 4 mg IVP Q4 PRN PRN Reason: Nausea/Vomiting Ondansetron HCl (Zofran Inj) 4 mg IVP ONCE PRN PRN Reason: Nausea/Vomiting - Labs Labs: 05/07/17 06:00 05/07/17 06:00 - Constitutional Appears: No Acute Distress - Head Exam Head Exam: ATRAUMATIC, NORMAL INSPECTION, NORMOCEPHALIC - Eye Exam Eye Exam: Normal appearance - Respiratory Exam Respiratory Exam: NORMAL BREATHING PATTERN. absent: Respiratory Distress - Cardiovascular Exam Cardiovascular Exam: REGULAR RHYTHM - GI/Abdominal Exam GI & Abdominal Exam: Soft, Tenderness (appropriately). absent: Distended, Firm , Guarding, Rigid, Rebound Additional comments: dressing C/D/I - Neurological Exam Neurological Exam: Alert, Oriented x3 - Psychiatric Exam Psychiatric exam: Normal Affect, Normal Mood - Skin Skin Exam: Dry, Intact Assessment and Plan - Assessment and Plan (Free Text) Assessment: 27M s/p Dx laparoscopy conv. to laparotomy with reduction and repair of internal hernia, POD #1 -Doing well post-operatively -Continue clear liquids, advance to full liquids when pt. ready -Pain control -Abdominal Binder -Encourage OOB and ambulation, Encourage Incentive spirometer DW Dr. Ambar Roman PGY3 <Peyman Villalta - Last Filed: 05/11/17 02:15> Objective - Vital Signs/Intake and Output Vital Signs (last 24 hours): Temp Pulse Resp BP Pulse Ox 97.8 F 81 20 129/89 98 05/08/17 16:48 05/08/17 18:51 05/08/17 16:48 05/08/17 18:51 05/08/17 16:48 - Labs Labs: 05/08/17 06:00 05/08/17 06:00 Assessment and Plan - Assessment and Plan (Free Text) Plan: Patient was seen and examined by me. I agree with assessment and plan as per resident's note.
--- NOTE | 2017-05-07 14:38 | CARD ---
APPROVED REPORT EKG Measurement Heart [id number] <Conclusion> Normal sinus rhythm Prolonged QT Abnormal ECG
--- NOTE | 2017-05-07 22:43 | PN ---
DATE: 05/07/2017 SUBJECTIVE: The patient has no complaints of any chest pain or shortness of breath, but he is drowsy. He was given pain medications. He states he is feeling better and his pain is controlled. PHYSICAL EXAMINATION: VITAL SIGNS: Temperature is 98.2, pulse of 90, blood pressure is 145/98, respirations are 20. GENERAL: The patient is lying in bed, flat, comfortable. HEENT: No oral lesion. Anicteric sclerae. Moist mucosa. NECK: No JVD, adenopathy, or thyromegaly. CARDIOVASCULAR: S1 and S2, regular. No murmurs, rubs, or gallops. LUNGS: Clear to auscultation bilaterally. No wheeze, rales, or rhonchi. ABDOMEN: Bowel sounds are positive, soft, nontender and nondistended. EXTREMITIES: no cyanosis, clubbing or edema. LABORATORY DATA: White count of 11.0, hemoglobin 15.4. Creatinine 0.8. ASSESSMENT: 1. Small bowel obstruction, status post laparotomy with lysis of adhesions and reduction of internal hernia, postoperative day #1. 2. Diabetes type 1. PLAN: The patient is currently comfortable. His glucose is controlled. His sugars are in the low 200s. He is receiving coverage with fingerstick. He is on Dilaudid for pain. The patient is on IV fluids with normal saline. He is on Zofran as needed. He is on a liquid diet. I did speak with the patient's father at the bedside to give him an update on the patient's diagnosis and plan of care. The patient was encouraged to use incentive spirometry. He is answering questions appropriately. I did speak to the surgery resident. We will repeat the patient's blood work tomorrow. James Patterson MD
--- NOTE | 2017-05-08 00:01 | CON ---
DATE: 05/07/2017 HISTORY OF PRESENT ILLNESS: This patient was seen and evaluated earlier. Discussed with the nursing staff. Status post laparotomy, complaining of some swelling in the left arm. Some discomfort. PHYSICAL EXAMINATION: VITAL SIGNS: On examination afebrile, blood pressure 143/98, respirations 20, . HEENT: Atraumatic. Anicteric. NECK: Supple. HEART: S1 and S2 heard. LUNGS: Bilateral air entry present. ABDOMEN: Soft. Surgical incision noticed. EXTREMITIES: No edema. No cyanosis. The left arm IV site area swelling present. LABORATORY DATA: Hemoglobin 13.4, hematocrit 40.5, WBC 11, and platelets 231. Chemistry is essentially unremarkable except sugar is elevated to 218. IMPRESSION: This 27-year-old patient is status post laparotomy with reduction and repair of the internal hernia on clear liquid diet, passing flatus. The patient's left arm swelling is probably of intravenous infiltration. Spoke with the nursing staff to change the site. Continue the present management as per surgery. Other comorbidities include diabetes mellitus and history of right inguinal hernia repair as a child. Thank you very much for allowing me to participate in the care of this patient. Jaquelin Rodriguez MD
[2017-05-08] MEDS: Sodium Chloride 0.9% 1,000 ML IV SCH (01:30)
[2017-05-08] MEDS ORDERED: Oxycodone/Acetaminophen 5/325 mg Tab PO PRN (07:00)
[2017-05-08 07:43] LABS: ALB/GLOB RATIO 1.4 (1.1-1.8); ALKALINE PHOSPHATASE 52 U/L (38-126); ALT/SGPT 45 U/L (7-56); AST/SGOT 42 U/L (17-59); BILIRUBIN,TOTAL 1.2 mg/dL (0.2-1.3); BLOOD UREA NITROGEN 11 mg/dL (7-21); CALCIUM 8.6 mg/dL (8.4-10.5); CARBON DIOXIDE 27 mmol/L (21-33); CHLORIDE 100 mmol/L (95-110); GFR AFRICAN-AMERICAN > 60; GLUCOSE,RANDOM 186 mg/dL (70-110); POTASSIUM 3.9 mmol/L (3.6-5.0); SODIUM 134 mmol/L (132-148); TOTAL PROTEIN 6.5 g/dL (5.8-8.3)
[2017-05-08 07:44] LABS: HEMATOCRIT 38.6 % (42.0-52.0); MEAN CORPUSCULAR HEMOGLOBIN 28.6 pg (25.0-35.0); MEAN CORPUSCULAR HGB CONC 33.7 g/dl (31.0-37.0); MEAN PLATELET VOLUME 9.4 fl (7.0-11.0); RED CELL DISTRIBUTION WIDTH 12.3 % (11.5-14.5); WHITE BLOOD COUNT 9.2 10^3/ul (4.5-11.0)
[2017-05-08] MEDS: Insulin Reg-MEDIUM-Coverage SC SCH ×3 (08:26→16:50)
[2017-05-08] MEDS ORDERED: HYDROmorphone 0.5 mg/0.5 ml ISec IVP PRN (09:06)
--- NOTE | 2017-05-08 09:11 | CP.PCM.PN ---
Subjective - Date & Time of Evaluation Date of Evaluation: 05/08/17 Time of Evaluation: 09:08 - Subjective Subjective: General Surgery - Dr. Villalta (Dr. Garcia covering thru 05/10) Pt. S&E. DANUTA. Pt states his pain is much improved today, minimal discomfort at the incision. He tolerated clear liquids, is passing flatus and had a BM yesterday evening. NO Nausea, Vomiting, Fevers, Chills, Sob, chest pain. He has been OOB and ambulating, working with incentive spirometer. Objective - Vital Signs/Intake and Output Vital Signs (last 24 hours): Temp Pulse Resp BP Pulse Ox 98.6 F 93 H 20 171/99 H 96 05/08/17 08:07 05/08/17 08:07 05/08/17 08:07 05/08/17 08:07 05/08/17 08:07 Intake and Output: 05/08/17 05/08/17 06:59 18:59 Intake Total 240 Balance 240 - Medications Medications: Current Medications Hydromorphone HCl (Dilaudid) 0.5 mg IVP Q3H PRN PRN Reason: Pain, severe (8-10) Sodium Chloride (Sodium Chloride 0.9%) 1,000 mls @ 75 mls/hr IV .[id number] [facility] Last Admin: 05/08/17 01:30 Dose: 75 mls/hr Insulin Human Regular (Humulin R Med) 0 units SC ACHS [facility] PRN Reason: Protocol Last Admin: 05/08/17 08:26 Dose: 1 units Ketorolac Tromethamine (Toradol) 30 mg IVP Q6H [facility] Last Admin: 05/08/17 08:25 Dose: 30 mg Ondansetron HCl (Zofran Inj) 4 mg IVP Q4 PRN PRN Reason: Nausea/Vomiting Ondansetron HCl (Zofran Inj) 4 mg IVP ONCE PRN PRN Reason: Nausea/Vomiting Oxycodone/Acetaminophen (Percocet 5/325 Mg Tab) 2 tab PO Q4H PRN PRN Reason: Pain, moderate (4-7) Stop: 05/11/17 07:01 - Labs Labs: 05/08/17 06:00 05/08/17 06:00 - Constitutional Appears: No Acute Distress - Head Exam Head Exam: ATRAUMATIC, NORMAL INSPECTION, NORMOCEPHALIC - Eye Exam Eye Exam: Normal appearance - ENT Exam ENT Exam: Mucous Membranes Moist - Respiratory Exam Respiratory Exam: NORMAL BREATHING PATTERN. absent: Respiratory Distress - Cardiovascular Exam Cardiovascular Exam: REGULAR RHYTHM - GI/Abdominal Exam GI & Abdominal Exam: Soft. absent: Distended, Firm, Guarding, Rigid, Tenderness , Rebound Additional comments: midline incision w/ john, dressing changed and is C/D/I, abdominal binder in place - Neurological Exam Neurological Exam: Alert, Oriented x3 - Psychiatric Exam Psychiatric exam: Normal Affect, Normal Mood - Skin Skin Exam: Dry, Intact Assessment and Plan - Assessment and Plan (Free Text) Assessment: 27M s/p Dx laparoscopy conv. to laparotomy with reduction and repair of internal hernia, POD #2 -Advance to Full liquids and monitor diet tolerance -Pain meds switched to PO, please administer Percocet prn with food; Dilaudid prn for breakthrough pain -DC IVF later today once tolerating adequate PO -Encourage OOB, Ambulation, Incentive spirometer DW Dr. Villalta and Dr. Garcia (covering thru 05/10) Abel PGY3
[2017-05-08 16:49] VITALS: TEMP 97.8; O2SAT 98
[2017-05-08 18:52] VITALS: BP 129/89; PULSE 81
--- NOTE | 2017-05-08 21:40 | PN ---
DATE: 05/08/2017 SUBJECTIVE: This patient was seen and evaluated earlier. The patient's family was at bedside. The patient was tolerating the diet, increased to solid food by the surgery. PHYSICAL EXAMINATION: VITAL SIGNS: Afebrile, blood pressure 148/96, pulse 92, respirations 20 and O2 saturation is 98%. HEENT: Atraumatic. Anicteric. NECK: Supple. HEART: S1 and S2 heard. LUNGS: Bilateral air entry present. ABDOMEN: Softly. There is surgical incision noticed. EXTREMITIES: No edema. No cyanosis. Left arm fully has significantly improved. LABORATORY DATA: Hemoglobin 13, hematocrit 38.5, WBCs 9.2 and platelets 230. Chemistries essentially unremarkable except blood glucose 175. IMPRESSION: This is a 27-year-old patient with a history of diabetes mellitus, asthma, has a history of right inguinal hernia repaired in his childhood, presented with an abdominal pain, found to have internal hernia, had a surgery done. Recovery well from the postoperative period. The patient is planned to be discharged. The patient to follow up as an outpatient with primary physician and also the surgery and gastroenterology followup as needed. Thank you very much for allowing us to participate in the care of the patient. Jaquelin Rodriguez MD
--- NOTE | 2017-05-09 01:51 | OP ---
PROCEDURE DATE: 05/06/2017 PREOPERATIVE DIAGNOSES: Small bowel obstruction and abdominal pain. POSTOPERATIVE DIAGNOSES: 1. Incarcerated internal paraduodenal hernia. 2. Chylous ascites. PROCEDURE PERFORMED: 1. Laparoscopic converted to open laparotomy with internal strangulated hernia repair. 2. Jejunopexy and plication of his jejunum to reduce paraduodenal hernia. SURGEON: Peyman Villalta MD STEM SIZER: Dr. Roman and Dr. Velasquez. TYPE OF ANESTHESIA: General endotracheal anesthesia. ANESTHESIA ADMINISTERED BY: Dr. Hill ESTIMATED BLOOD LOSS: Minimal. SPECIMEN: None. INDICATIONS: The patient is a 27-year-old male who came to the hospital with complete small obstruction with associated pain, discomfort, nausea, and vomiting. The patient had a CT scan revealing the presence of dilated loops of proximal bowel and some intraabdominal fluid. Decision was made to proceed with laparoscopy in order to diagnose the actual problem, which was suspicious for internal hernia versus obstructing tumor. DESCRIPTION OF PROCEDURE: The patient was brought to the operating room and placed on the operating room table in the supine position. The patient was connected to EKG, blood pressure, and pulse oximetry monitor. The patient then underwent general endotracheal anesthesia and was prepped and draped in the usual sterile fashion. First, a standard time-out procedure took place and everybody in the room agreed as to the patient's identity, diagnoses, and procedure to be performed. Once this was completed, a surgical plan for the procedure as well as postop course was also explained. Now, using 2 towel clamps the anterior abdominal wall was elevated, a small incision was made inferior to the umbilicus noted to place the Veress needle. Once Veress needle was inserted a pneumoperitoneum was obtained and a 12 mm trocar was inserted through the incision. I then proceeded with careful inspection of abdominal cavity and noted that there was milky fluid noted in the portion of the upper abdomen just underneath the omentum, which was elevated and pushed along the transverse colon. There was also some fluid in the area of the appendix and pelvis. Appendix was visualized and appeared to be normal. I then placed a second 5 mm trocar in right upper quadrant and carefully proceeded with elevation of the transverse colon in order to expose the area of proximal jejunum. A bowel clamps were used in order to carefully round the small bowel. It was noted that there was a loop of small bowel, which was surrounded with chylous ascites and some whitish exudate on the mesentery of the small bowel. That loop appeared to be viable, however, was stuck inside the hernia, which was deep to it. A careful pulling of the bowel was attempted and after several attempt noted in the distal distended as well as area of the small bowel, which appeared to be caught in that hernia with visible band across that small bowel was released. I still could not remove the entire loops from the hernia. I then proceeded with opening of the patient abdominal cavity in the midline and extended for about 10 cm in order to be able to place my hand. Once this was done, I carefully pulled out the remaining portion of the small bowel from the hernia and carefully inspected it. It appeared that there was whitish exudate secondary to chylous ascites however, there was no evidence of any ischemia of the bowel. It appeared that there was a herniation going into the retroperitoneal space under the peritoneum just across from the ligament of Treitz going towards the left abdomen. That hernia appeared to be a blind pouch. I then proceeded with reexamining the entire small bowel and after loading that there was no ischemia or obstruction proceeded with plication of the proximal jejunum to the bottom and the edge of the herniation noted to reduce the hernia sac and at the same time fix the bowel in order to prevent it from future herniation. This was done with multiple 3-0 silk stitches. Once this was completed, the abdominal cavity was irrigated and suctioned out and the abdominal cavity was then carefully closed in layers using number 1 PDS for the fascia, 3-0 Vicryl subcutaneous tissue, 4-0 Monocryl for skin. The port sites were closed using 0 Vicryl for the fascia, 3-0 Vicryl for subcutaneous tissue, and 4-0 Monocryl for the skin. The patient tolerated the procedure well and there were no complication. The patient was awakened, extubated, and transferred to recovery room for further observation. Peyman Villalta MD [facility]
--- NOTE | 2017-05-09 01:54 | DS ---
HISTORY OF PRESENT ILLNESS: The patient has no complaints of any chest pain. No shortness of breath. No headaches. He had a small-bowel obstruction secondary to a hernia that was repaired and he is feeling well. He is able to tolerate his diet. He was advanced. He was able to ambulate with no pain. He is going to be discharged home. I did speak to the patient's father at the bedside, we gave him an update on the patient's diagnosis and the plan of care. PHYSICAL EXAMINATION: VITAL SIGNS: Temperature is 98.6, pulse of 93, blood pressure is 171/99, respiration is 20. GENERAL: The patient is lying in bed, flat, comfortable. HEENT: No oral lesion. Anicteric sclerae. Moist mucosa. NECK: No JVD, adenopathy, or thyromegaly. CARDIOVASCULAR: S1 and S2, regular. No murmurs, rubs, or gallops. LUNGS: Clear to auscultation bilaterally. No wheeze, rales, or rhonchi. ABDOMEN: Bowel sounds are positive, soft, nontender and nondistended. EXTREMITIES: No cyanosis, clubbing or edema. LABORATORY DATA: Creatinine is 0.7. ASSESSMENT: 1. Small bowel obstruction, status post laparotomy with lysis of adhesions and reduction of internal hernia, postoperative day #2. 2. Diabetes type 1. PLAN: The patient is currently on IV fluids. I will discontinue the patient's IV fluids. He is on Percocet for pain. I will discontinue his Dilaudid. The patient does not require anymore Zofran. I will discontinue his Zofran. I have advanced his diet to a diabetic diet. CONDITION: Stable. ACTIVITY: Increase as tolerated. FOLLOWUP: 1. Followup with *------* in one week. 2. Followup with Dr. Bingham for a staple removal in one week. The patient is able to pass gas and will have his dinner, and if he tolerates, he will be discharged home. James Patterson MD
== END 2017-05-08 21:14 | disposition home or self-care (01) | DRG 346 ==
LOC: ED 04:53 → ERH 08:36 → 5RSO 17:13
PROVIDERS: ADMIT Internal Medicine Nephrology; ATTEND Internal Medicine Nephrology
PROC: 0DSA0ZZ Reposition Jejunum, Open Approach (ICD-10-PCS; 2017-05-06)
PROC: 0WJF4ZZ Inspection of Abdominal Wall, Percutaneous Endoscopic Approach (ICD-10-PCS; 2017-05-06)
PROC: 0D9670Z Drainage of Stomach with Drainage Device, Via Natural or Artificial Opening (ICD-10-PCS; 2017-05-06)
PROC: 0WQF0ZZ Repair Abdominal Wall, Open Approach (ICD-10-PCS; principal; 2017-05-06 12:30)
DX: K45.0 Other specified abdominal hernia with obstruction, without gangrene (principal); I89.8 Other specified noninfective disorders of lymphatic vessels and lymph nodes; E10.9 Type 1 diabetes mellitus without complications; J45.909 Unspecified asthma, uncomplicated; K52.9 Noninfective gastroenteritis and colitis, unspecified; Z53.31 Laparoscopic surgical procedure converted to open procedure; Z79.4 Long term (current) use of insulin